=== PATIENT | male | born 1950 | race Caucasian/White ===

== ENCOUNTER 2023-02-28 06:09 | Observation (INO) ==
--- NOTE | 2023-02-09 14:58 | PAT Medication Instructions ---
Medication Instructions Date of Service February 09, 2023 Home Medications Medication Instructions Recorded amlodipine 5 mg-benazepril 10 mg 1 cap PO HS #90 caps 02/02/23 capsule rosuvastatin 5 mg tablet 5 mg PO HS #90 tabs 02/02/23 cholecalciferol (vitamin D3) 50 mcg (2,000 unit) capsule 50 mcg PO HS amlodipine 5 mg-benazepril 10 mg capsule 1 cap PO HS rosuvastatin 5 mg tablet 5 mg PO HS Take evening before surgery cholecalciferol (vitamin D3) 50 mcg (2,000 unit) capsule 50 mcg PO HS amlodipine 5 mg-benazepril 10 mg capsule 1 cap PO HS rosuvastatin 5 mg tablet 5 mg PO HS Other Notes If you have any questions please call us at [phone] or [phone] or [phone] or [phone]
--- NOTE | 2023-02-15 09:43 | Anesthesiology Consultation ---
Date of Service February 15, 2023 Assessment & Plan (1) Encounter for pre-operative examination: - COVID screening: Per assessment on 02/15: No known COVID-19 positive contacts or current COVID-19 related symptoms. Travel screen negative. Patient vaccinated. At surgeon discretion if preop Covid testing being done. - PCP visit (02/02/23): "I feel has an acceptable risk for the prostate cancer surgery which most likely would be done robotically." - Preop labs: Due to lab error, T&S not run with preop labs. Spoke with Jaki at blood bank- she just recommends patient have drawn DOS/does not feel patient needs to come in sooner preoperatively. T&S ordered for AM DOS. Chart Review Chart Review: Acceptable Risk for Surgery and Patient seen in Pre Admission Testing Teaching & Discussion Pre-Anesthesia Teaching/Discussion Notes: Instructed NPO after midnight before surgery,except medications with 15 cc of water. Medication instructions provided according to the PAT guidelines. History Surgery Operation Date: 02/28/23 08:20 Proposed Procedures p Laparoscopic Robotic Assisted Radical Retropubic Prostatectomy, Possible Open, Possible Pelvic Lymph Node Dissection - Houston Edwards MD Height/Weight Height: 5 ft 8 in Weight: 104.7 kg Allergies Allergy/AdvReac Type Severity Reaction Status Date / Time codine AdvReac Mild Vomiting Uncoded 02/09/23 14:19 Medications Home Medications Medication Instructions Recorded Confirmed Last Taken cholecalciferol (vitamin D3) 50 50 mcg PO HS 08/02/22 02/09/23 Unknown mcg (2,000 unit) capsule amlodipine 5 mg-benazepril 10 mg 1 cap PO HS #90 caps 02/02/23 02/09/23 Unknown capsule rosuvastatin 5 mg tablet 5 mg PO HS #90 tabs 02/02/23 02/09/23 Unknown Past Medical History Medical History BPH (benign prostatic hyperplasia) History of COVID-19 2021, mild cold symptoms > resolved Hyperlipemia Hypertension Prostate cancer Exercise / Class Metabolic Activity II 4-5 Yardwork/Stairs/Walk up hill (one FS (no CP, no SOB)) Past Family History Family History Mother Dementia Father Myocardial infarction Sister Myocardial infarction Past Surgical History Surgical History History of hernia surgery 2002 Hx of colonoscopy Past Anesthesia History No Hx of Anesthesia Complications and No Family Hx of Anesthesia Complications Mother- dementia, post-op worsening of dementia History of PONV No Hx of PONV and No Hx of Motion Sickness Social History Smoking Status: Former smoker tobacco type: cigarettes Do You Dip or Chew Tobacco: No Smoking End Date: Quit 35 years ago Hx Alcohol Use: Yes Alcohol type: wine alcohol intake frequency: 0-2 drinks per day (1 drink/day) Hx Substance Use: No substance use type: does not use Review of Systems Patient denies chest pain, shortness of breath, dyspnea on exertion, fever, chills, cough, wheezing, palpitations. Physical Exam Vital Signs VITALS BP 149/81 P 90 TEMP 98.3 SP02 95%RA RESP 16 PHYSICAL Full cervical extension range of motion. Full TMJ range of motion. TMD 3 finger breaths (thick neck, difficult to palpate) Mallampati Score 3 Dentition: intact, + crowns Lungs: clear throughout to auscultation Cardiac: regular rate and rhythm, no murmurs noted Spine: normal Carotid arteries: negative bruit Extremities: no LE edema Lab Results Anesthesia Preop Results Results Anesthesia Widget: WBC 10.08 K/ul (4.8-10.8) 02/15/23 Hgb 16.0 g/dl (14.0-18.0) 02/15/23 Hct 46.8 % (42.0-52.0) 02/15/23 Plt 263 K/uL (130-400) 02/15/23 Na 137 mmol/L (136-145) 02/15/23 K 4.1 mmol/L (3.5-5.1) 02/15/23 Cl 104 mmol/L (98-107) 02/15/23 CO2 25 mmol/L (21-32) 02/15/23 BUN 14 mg/dl (6-23) 02/15/23 Creat 0.74 mg/dl (0.6-1.4) 02/15/23 Glucose Level 98 mg/dl (70-99(Fasting)) 02/15/23 Testing Electrocardiogram Date: 02/15/23 NSR at 93bpm. LAD. Chest X-Ray Date: 02/15/23 FINDINGS: PA and lateral chest radiographs are obtained. No prior studies are available for comparison at the time of dictation. The cardiomediastinal silhouette is unremarkable. The lungs and pleural spaces are clear noting bibasilar scarring/atelectasis. There is no pneumothorax. The skeletal structures are osteopenic. The bony thorax appears intact. Degenerative change is noted in the spine. IMPRESSION: No active disease in the chest. Other Testing PET CT (01/18/23) Marked increased tracer activity within the 1.5 cm primary malignancy within the lateral aspect of the peripheral zone at the level of the mid gland prostate. No evidence of metastatic disease within the chest, abdomen or pelvis. Stable appearance of the previously described borderline enlarged iliac chain lymph nodes which demonstrate no significant tracer uptake. These are likely benign. No evidence of skeletal metastasis. COVID-19 Risk Screen Screening Information COVID-19 Screen Date: 02/15/23 Exposure 21 Days Family/Household +COVID Last 21 Days: No Exposure 10 Days Any COVID Exposure Last 10 Days: No Symptoms Last 10 Days Experienced COVID Sx Last 10 Days: No + COVID 0-90 Days COVID + in Last 0-90 Days: No
[~2023-02-28 06:09] MED LIST: HEPARIN SOD 5,000 UNIT/0.5 ML VIAL SQ SCH; LR 15ML/HR IV SCH
[2023-02-28] MEDS ORDERED: BUPIVACAINE 0.5 % 5 MG/1 ML MPF 30ML VIAL ONE (07:05)
[2023-02-28] MEDS ORDERED: LIDOCAINE 2% 2 ML VIAL/AMP(20MG/ML) INFIL ONE (07:11)
[2023-02-28] MEDS ORDERED: ONDANSETRON INJ 2 MG/ML 2 ML VIAL ONE (07:11)
[2023-02-28] MEDS ORDERED: DEXAMETHASONE SOD INJ 4 MG/ML VIAL ONE (07:11)
[2023-02-28] MEDS ORDERED: KETAMINE 50 MG/5 ML SYRINGE ONE (07:11)
[2023-02-28] MEDS ORDERED: MIDAZOLAM HCL 1 MG/ML 2ML VIAL ONE (07:11)
[2023-02-28] MEDS ORDERED: ROCURONIUM BROMIDE 10 MG/ML 5 ML VIAL IV ONE (07:11)
[2023-02-28] MEDS ORDERED: fentaNYL citrate PF 100 MCG/2 ML VIAL ONE ×2 (07:11→09:10)
--- NOTE | 2023-02-28 07:27 | History & Physical Bridge Note ---
Date of Service February 28, 2023 History & Physical Bridge Note I have examined the patient, reviewed the History & Physical and in the interval since the performance of the History & Physical I have noted the following changes of clinical significance: no changes noted
[2023-02-28] MEDS ORDERED: ceFAZolin 2,000 MG/15 ML IV PUSH IV ONE (07:31)
[2023-02-28] MEDS ORDERED: BELLADONNA/OPIUM SUPP 60 MG SUPP PR ONE (07:49)
[2023-02-28] MEDS ORDERED: ONDANSETRON INJ 2 MG/ML 2 ML VIAL IV PRN ×2 (07:58→12:48)
[2023-02-28] MEDS ORDERED: ATROPINE SULFATE 0.1 MG/ML 10ML SYR IV PRN (07:58)
[2023-02-28] MEDS ORDERED: ePHEDrine sulfate 50 MG/ML AMP IV PRN (07:58)
[2023-02-28] MEDS ORDERED: HYDROmorphone INJ 1 MG/ML SYRINGE IV PRN (07:58)
[2023-02-28] MEDS ORDERED: FLOSEAL HEMOSTATIC MATRIX 10ML TOP ONE (08:47)
[2023-02-28] MEDS ORDERED: SURGICEL ABSORB HEMOSTAT 2IN X 14IN TOP ONE (08:49)
[2023-02-28] MEDS ORDERED: SUGAMMADEX SODIUM 200 MG/2 ML VIAL IV ONE (10:22)
--- NOTE | 2023-02-28 11:03 | Operative Report ---
[facility] Post Operative Report Pre & Post Diagnosis Operation Date: 02/28/23 07:30 Pre-Op Diagnosis: Prostate Cancer Post-Op Diagnosis: Prostate Cancer I identified the patient and participated in the time-out.: Yes Procedure Operation Date: 02/28/23 07:30 Actual Procedures p Laparoscopic Robotic Assisted Radical Retropubic Prostatectomy, Bilateral Pelvic Lymph Node Dissection(Not Applicable) - Houston Edwards MD Surgeon Houston Edwards MD City Editor Ileana Hunt Estimated Blood Loss 150 Findings Consistent with Post-Op Diagnosis Specimens 1. Periprostatic fat 2. Prostate and seminal vesicles 3. Left pelvic lymph nodes 4. Right pelvic lymph nodes Description of Procedure The patient was identified in the preoperative holding area, appropriate informed consents were reviewed and completed, and he was transported to the operating suite. Subcutaneous heparin was administered in the pre-operative holding area. Upon arrival in the operating suite, he received appropriate antibiotics and general anesthesia. He was positioned in dorsal lithotomy, a B&O suppository was inserted after digital rectal exam, and he was prepped and draped in standard fashion. A Pickens catheter was inserted in the sterile field. A Veress needle was passed per umbilicus with uniform insufflation of the abdomen to 15mmHg. He was placed in steep Trendelenburg position. A periumbilical incision was then made to accommodate a 12mm Visiport with 10mm 0degree laparoscope. Inspection of the abdomen was carried out, and there was no evidence of traumatic entry or injury secondary to the Veress needle. After confirming a clear anterior abdominal wall, ports were subsequently placed in standard robotic prostatectomy fashion without incident. To begin the robotic portion of the case, the left lateral aspect of the sigmoid was mobilized off of the left pelvic side wall to allow the pouch of Cole to be appropriately visualized. The medial umbilical ligaments were then controlled with bipolar electrocautery just inferior to the umbilicus. Following cauterization, they were divided utilizing monopolar cautery. A peritoneal incision was carried from this location to the medial aspect of the internal inguinal rings bilaterally with care to avoid opening through the ring. This incision was concluded when the vas deferens was reached. Dissection of the bladder and prostate off of the posterior aspect of the pubic arch was completed allowing full visualization of the prostate. The fat overlying the prostate was removed en bloc and passed off the table as a specimen labeled "periprostatic fat". The endopelvic fascia was cleared during this portion of the procedure, and subsequently opened - first on the right and then the left. The incision through the endopelvic fascia began near the prostate-bladder junction and was carried to the apex with extreme care to preserve all lateral levator musculature as well as the periurethral musculature and sphincter complex. I additionally preserved the puboprostatic ligaments. I then controlled the DVC with a 3-0 V-lock suture in overlapping/figure of 8 fashion. The lymph node dissection was then conducted. External iliac vessels were identified on the pelvic side wall. The packet of fat and lymphatic tissue that resides just under the iliac vein was elevated and off of the vein with a split and roll technique. The packet was dissected laterally to the circumflex vein and distally to the obturator nerve which was preserved. The proximal aspect of the packet was carried towards the bifurcation of the iliac vessels. A combination of monopolar and bipolar cautery were used to assist with control. After completing the dissection on both sides, the packets were collected and passed off of the table as specimens labeled "pelvic lymph nodes". My attention then returned to the prostate, with identification of the bladder neck aided by gentle traction on the Pickens catheter and lateral to medial pressure at the presumed level of the bladder neck with the robotic instruments. An anterior cystotomy was made, the Pickens balloon deflated and the catheter guided through the incision to allow anterior retraction. I attempted to preserve maximal bladder neck musculature as I circumferentially dissected around the bladder neck. After incision through the posterior aspect of the mucosa, the dissection was carried through detrusor muscle until the bilateral ampullae of the vasa were identified. These reach elevated and dissected for approximately 3 to 4 cm before transecting them. I then dissected the lateral seminal vesicles entirely. Utilizing the seminal vesicles we were able to retract the prostate anteriorly and then dissected plane posterior to the prostate splitting the posterior fascia. An incision in the lateral prostatic fascia was then made bilaterally to facilitate control of the vascular pedicles and preservation of the nerve bundles. Vasculature running along the posterior/lateral aspect of the prostate was preserved as well as the tissue containing the nerves. The pedicles were then controlled with a series of Weck clips. The apical attachments of the prostate were remaining at that stage. The DVC was divided after control with bipolar cautery over the prostate. Continuous inspection from anterior and lateral views allowed me to closely follow the apical contour of the prostate and maximally preserve urethral length and tissue. The prostate was entirely freed at that point, and collected in an EndoCatch bag before being moved out of the field of vision. Hemostasis was confirmed and anastomosis of the bladder and urethra was completed utilizing a double armed V- Lock stitch. A new Pickens catheter was inserted and the anastomosis tested with irrigation. There was no evidence of leak. A maria style stitch was placed bilaterally to functionally marsupialize the area of the lymph node dissection. The robot was undocked, the specimen extracted through expansion of the mj- umbilical camera port. The fascia was closed with a series of 0-PDS figure of 8 stitches. The right phlebotomist lab assistant port was closed in two layers - with a figure of 8 0-Vicryl to reapproximate the fascia followed by 4-0 Monocryl to close the skin. Monocryl was used to close all other skin incisions. All wounds were dressed with Dermabond. The case was concluded and the patient taken to the PACU in stable condition. Ileana Hunt assisted from incision to closure. I attest to the content of the Intraoperative Record and any orders documented therein. Any exceptions are noted below.
[2023-02-28 11:40] LABS: Basophils # (auto) 0.04 K/uL (0-0.2); Basophils % (auto) 0.3 %; Eosinophils # (auto) 0.03 K/uL (0-0.50); Eosinophils % (auto) 0.2 %; Hematocrit (blood only) 45.9 % (42.0-52.0); Hemoglobin 15.4 g/dl (14.0-18.0); Immature Granulocytes # (auto) 0.07 K/uL (0.01-0.20); Immature Granulocytes % (auto) 0.5 %; Lymphocytes # (auto) 1.32 K/uL (1.2-3.4); Lymphocytes % (auto) 9.8 %; Mean Corpuscular Hemoglobin 30.4 pg (25.0-34.0); Mean Corpuscular Hgb Conc 33.6 g/dL (32.0-36.0); Mean Corpuscular Volume 90.5 fL (80.0-100.0); Mean Platelet Volume 9.8 fL (9.4-12.4); Monocytes # (auto) 0.18 K/uL (0.11-0.59); Monocytes % (auto) 1.3 %; Neutrophils # (auto) 11.84 K/uL (1.40-6.50); Neutrophils % (auto) 87.9 %; Platelet Count 236 K/uL (130-400); RDW Coefficient of Variation 13.2 % (11.5-14.5); Red Blood Count 5.07 M/uL (4.70-6.10); White Blood Count 13.48 K/ul (4.8-10.8)
[2023-02-28 12:01] LABS: BUN Creatinine Ratio 16.5 (10-20); Blood Urea Nitrogen 16 mg/dl (6-23); Calcium 8.6 mg/dl (8.6-10.3); Carbon Dioxide 24 mmol/L (21-32); Chloride 106 mmol/L (98-107); Creatinine Clr Calc Pharmacy 78.6 ml/min; Est GFR (African American) 89.4 ml/min; Est GFR (Non-African American) 77.1 ml/min; Glucose 150 mg/dl (70-99(Fasting))
--- NOTE | 2023-02-28 12:09 | Anesthesiology Progress Note ---
Date of Service February 28, 2023 Anesthesia Post Procedure Vital Signs Vital Signs: Temp Pulse Pulse Resp BP Pulse Ox O2 Del Method 02/28/23 12:00 54 L 22 111/71 93 Nasal Cannula 02/28/23 11:50 67 28 H 122/70 90 Room Air 02/28/23 11:40 79 21 122/70 95 Oxymask 02/28/23 11:30 91 H 19 129/74 98 Oxymask 02/28/23 11:20 97 H 24 159/83 H 97 Oxymask 02/28/23 11:13 36.2 C L 99 H 19 140/86 99 Oxymask 02/28/23 06:36 36.8 C 95 H 16 162/81 H 96 Room Air O2 Flow Rate 02/28/23 12:00 2 02/28/23 11:50 02/28/23 11:40 5 02/28/23 11:30 5 02/28/23 11:20 5 02/28/23 11:13 5 02/28/23 06:36 Pain Intensity Abdomen: Pain Intensity: 3 Transfer of Care Handoff Completed per policy Notes Mental Status: alert / awake / arousable and participated in evaluation Nausea / Vomiting: adequately controlled Pain: adequately controlled Airway Patency, RR, SpO2: stable & adequate BP & HR: stable & adequate Hydration State: stable & adequate Anesthetic Complications: no major complications apparent and Pt Satisfied with anesthetic care
[2023-02-28] MEDS ORDERED: MoRPHine SULFATE 2 MG/ML CARP IV PRN (12:48)
[2023-02-28] MEDS ORDERED: oxyCODONE HCL IR 5 MG TAB (IMMEDIATE RELEASE) PO PRN ×2 (12:48)
[2023-02-28] MEDS ORDERED: MoRPHine SULFATE 4 MG/ML 1 ML CARP\\VIAL IV PRN (12:48)
[2023-02-28 12:56] LABS: Potassium 4.4 mmol/L (3.5-5.1)
[2023-02-28] MEDS: LACTATED RINGER'S 1,000 ML IV SCH ×2 (13:11→21:18)
[2023-02-28] MEDS: ACETAMINOPHEN 325 MG TAB PO SCH ×2 (13:13→19:25)
[2023-02-28] MEDS: DOCUSATE SODIUM 100 MG CAP PO SCH (19:31)
[2023-02-28] MEDS: HEPARIN SOD 5,000 UNIT/0.5 ML VIAL SQ SCH (19:32)
[2023-02-28] MEDS: ceFAZolin 2000MG 2,000 MG/15 ML SYR IV SCH (19:32)
[2023-02-28] MEDS ORDERED: ROSUVASTATIN CALCIUM 5 MG TAB PO SCH (21:00)
[2023-02-28] MEDS ORDERED: ENALAPRIL MALEATE 10 MG TAB PO SCH (21:00)
[2023-02-28] MEDS ORDERED: CHOLECALCIFEROL 1,000 UNITS 25 MCG TAB PO SCH (21:00)
[2023-02-28] MEDS ORDERED: amLODIPine BESYLATE 5 MG TAB PO SCH (21:00)
[2023-03-01] MEDS: ACETAMINOPHEN 325 MG TAB PO SCH ×3 (01:04→13:37)
[2023-03-01] MEDS: ceFAZolin 2000MG 2,000 MG/15 ML SYR IV SCH (04:26)
[2023-03-01] MEDS: LACTATED RINGER'S 1,000 ML IV SCH (07:00)
[2023-03-01 07:15] LABS: Basophils # (auto) 0.03 K/uL (0-0.2); Basophils % (auto) 0.1 %; Hematocrit (blood only) 43.2 % (42.0-52.0); Hemoglobin 15.2 g/dl (14.0-18.0); Immature Granulocytes # (auto) 0.13 K/uL (0.01-0.20); Immature Granulocytes % (auto) 0.6 %; Lymphocytes # (auto) 1.51 K/uL (1.2-3.4); Lymphocytes % (auto) 7.5 %; Mean Corpuscular Hgb Conc 35.2 g/dL (32.0-36.0); Mean Corpuscular Volume 88.2 fL (80.0-100.0); Monocytes # (auto) 1.96 K/uL (0.11-0.59); Monocytes % (auto) 9.7 %; Neutrophils # (auto) 16.63 K/uL (1.40-6.50); Neutrophils % (auto) 82.1 %; Platelet Count 251 K/uL (130-400); RDW Coefficient of Variation 13.4 % (11.5-14.5); RDW Standard Deviation 43.6 fL (36.4-46.3); White Blood Count 20.26 K/ul (4.8-10.8)
[2023-03-01 07:17] LABS: BUN Creatinine Ratio 18.7 (10-20); Calcium 8.4 mg/dl (8.6-10.3); Creatinine Clr Calc Pharmacy 83.7 ml/min; Est GFR (African American) 96.6 ml/min; Est GFR (Non-African American) 83.3 ml/min
--- NOTE | 2023-03-01 07:59 | Urology Progress Note ---
Date of Service March 01, 2023 Assessment & Plan (1) Prostate cancer: Plan: Progressing appropriately on postoperative day #1 Continue ambulation Advance diet Potential discharge home later this morning presuming he continues to progress as he has already Admission and Anticipated Discharge Date Admission Date: February 28, 2023 Subjective Did great overnight No pain Ambulatory Passing some flatus Labs are all stable Physical Exam Physical Exam: Incisions appropriate, abdomen slightly distended but not tender Constitutional: well developed and well nourished Respiratory: no respiratory distress Cardiovascular: Extremities: no pedal edema Gastrointestinal (Abdomen): Inspection/Auscultation: abdomen normal to inspection Results & Data Vital Signs (Past 12 Hours) Vital Signs Temp Pulse Resp BP BP Pulse Ox O2 Del Method 03/01/23 07:03 37 C 101 H 18 145/79 H 93 Room Air 03/01/23 02:14 36.8 C 90 18 123/73 93 Room Air 02/28/23 23:18 36.9 C 91 H 18 122/66 93 Room Air PG Care Time/CCT Total # of Minutes Spent Total Time Spent with Patient: Total time spent is greater than 50% in coordination of care (as documented) at patient's floor/unit and/or counseling patient: Coding Level of Care Code None Diagnoses Prostate cancer C61
[2023-03-01] MEDS: HEPARIN SOD 5,000 UNIT/0.5 ML VIAL SQ SCH (08:14)
[2023-03-01] MEDS: DOCUSATE SODIUM 100 MG CAP PO SCH (08:17)
--- NOTE | 2023-03-01 14:21 | Discharge Summary ---
Date of Service March 01, 2023 Admission HPI Per Admitting Provider Patient with prostate cancer here for robotic prostatectomy. Admission Exam Per Admitting Provider Constitutional well developed and well nourished Neck neck nontender Respiratory normal respiratory effort; no respiratory distress and does not use accessory muscles Cardiovascular Rate/Rhythm: regular rate Vessels: radial pulses present Extremities: no edema Gastrointestinal (Abdomen) Inspection/Auscultation: abdomen normal to inspection Percussion/Palpation: abdomen soft; abdomen nontender and no guarding Musculoskeletal Head/Neck/Chest: normocephalic and head atraumatic Extremities: extremities normal to inspection Skin no rashes and no lesions Trauma: no evidence of skin trauma Neurologic awake; not obtunded Speech / Cognition: normal speech Motor/Sensory: no tremor Psychiatric Orientation: alert and oriented x 3 Genitourinary no CVA tenderness Lymphatic no lymphadenopathy Principal Diagnosis Prostate cancer Discharge Exam Constitutional well developed and well nourished; no acute distress Respiratory normal respiratory effort; no respiratory distress and no labored breathing Gastrointestinal (Abdomen) Inspection/Auscultation: abdomen normal to inspection; abdomen not distended Musculoskeletal Head/Neck/Chest: normocephalic and head atraumatic Skin Incisions appropriate Psychiatric Orientation: alert and oriented x 3 Genitourinary Pickens patent and draining yellow urine with intermittent bloody sediment in tubing Discharge Data Allergies Allergy/AdvReac Type Severity Reaction Status Date / Time codine AdvReac Mild Vomiting Uncoded 02/28/23 06:02 Procedures Performed Operation Date: 02/28/23 07:30 Actual Procedures p Laparoscopic Robotic Assisted Radical Retropubic Prostatectomy, Bilateral Pelvic Lymph Node Dissection(Not Applicable) - Houston Edwards MD Hospital Course (1) Prostate cancer: Progressing appropriately on postoperative day #1 Continue ambulation Advance diet Potential discharge home later this morning presuming he continues to progress as he has already Patient reassessed this afternoonhe is progressing as expected. He is ready for discharge to home. Expected clinical course reviewed, all questions answered. Outpatient follow-ups in place. Orders placed for discharge to home with Pickens catheter. Total Time Total Time Spent Total Time Spent (In Minutes): 29 Discharge Plan Discharge Items Patient Disposition: Home - Self-Care Reason For Visit: Prostate Cancer Discharge Diagnosis: Prostate Cancer Activity: Per Instructions section Lifting: No more than 10 pounds Bathing Comment: Okay to shower after discharge, no tub bath or soaking Sexual Activity: Wait until after follow-up appointment Exercise/Sports: Wait until after follow-up appointment Driving/Machine Use: No driving while taking prescription pain medication Non-emergency contact: Surgeon and Urologist Call non-emergency contact if: your pain is not controlled, you have a fever, your temperature is above 101.5, your wound has increased redness, your wound has increased drainage and your wound pain has increased Follow-up/Referrals: Houston Edwards MD [Physician] - 03/15/23 9:15 am Chriss De León MD [Primary Care Provider] - [facility],Nurse [FAKE FOR SCHEDULES] - 03/06/23 9:00 am Diet: Regular Ambulatory Orders: Type and Screen (Routine) Timeframe: 1 Day Location: Determined by Patient Ordered By: Cherri Ornelas Attending Provider Instructions: Please take all medications as prescribed and keep all follow-ups as scheduled. Please call our office at [phone] with any questions, concerns or need to reschedule appointments for any reason. We are happy to assist you. We have sent an antibiotic to your pharmacy of choice. Please begin antibiotic as prescribed the day BEFORE your scheduled voiding trial at [facility]. Please continue antibiotic every 12 hours through the day AFTER your voiding trial. Activity: We recommend having someone with you for the first few days after surgery to help care for you. For the first 2 weeks after surgery, we would like you to get up and walk around your house. However, we recommend limit physical activity that would increase your heart rate. This will allow your body to rest and heal. Take naps if you feel tired. Don't lift anything heavier than 10 pounds, mow the law or ride a bicycle until your follow-up appointment. Please avoid long car rides. Home Care: Unless directed otherwise, drink 6 to 8 glasses of water a day (enough to keep your urine light colored). This will also help keep a healthy flow of urine. We recommend using a stool softener for the first two weeks to avoid constipation. Pickens Catheter or Suprapubic Catheter care: Keep the catheter well secured with either a leg back or leg strap with large bag. Empty your bag when it's about half full. You may notice some blood in the bag. This is normal after surgery and while the catheter is in place. Use mild soap (such as Dove or Dial) and water to wash the catheter and the head of your penis daily, or more frequently if needed. Return to your normal diet, we encourage good protein intake to promote healing. You may shower as normal. Please avoid tub baths or soaking until catheter removed and incisions well healed. Wearing sweat pants while you have the catheter is recommended, they will be more comfortable. Follow-up Your follow up appointments for having your catheter removed, and follow up with your physician should already be scheduled. If you have any questions regarding this, please contact our office. Your final pathology report will be discussed at your physician follow-up appointment. Call [facility] at [phone] right away if you have any of the following: Chest pain or trouble breathing (call 485 or go to the hospital) Fever of 101F or higher, uncontrolled vomiting Heavy bleeding, clots, or bright red blood from the catheter Catheter that falls out or stops draining Foul-smelling discharge from your catheter Redness, swelling, warmth, or increased pain at your incision site Drainage, pus, or bleeding from your incision Pending Studies at Discharge: Yes (pathology) Stand-Alone Forms: [facility] [employer], Smoking Cessation Medications and DC Order Prescriptions: New ciprofloxacin HCl 500 mg tablet 500 mg PO BID Qty: 6 0RF Rx Instructions: start 1 day prior to catheter removal oxycodone-acetaminophen [Percocet] 5-325 mg tablet 1 tab PO TID PRN (Reason: pain) Qty: 7 0RF docusate sodium [Colace] 100 mg capsule 100 mg PO BID Qty: 60 0RF Rx Instructions: Take twice daily for 2 weeks, then as needed for constipation. Continued cholecalciferol (vitamin D3) 50 mcg (2,000 unit) capsule 50 mcg PO HS amlodipine-benazepril 5-10 mg capsule 1 cap PO HS Qty: 90 3RF rosuvastatin 5 mg tablet 5 mg PO HS Qty: 90 3RF Discharge Orders: Discharge Order (Routine); Ordered 03/01/23 Ordered By: Ileana Alexandre/Other Patient Handouts: Prostate Cancer Radical ... Admission Data Admit Date/Time: 02/28/23 11:05 Attending Provider: Houston Edwards Admit Provider: Houston Edwards Primary Care Provider: Chriss De León Other Interventions: Discharge Summary Assessment (RN) Last Done: 03/01/23 13:04 Coding Level of Care Code 19236 IN/OBS DISCH 30 MIN/LESS Diagnoses Prostate cancer C61
== END 2023-03-01 13:40 | disposition home or self-care (01) ==
LOC: ASU 06:09 → 3W 11:05 → INTOOBSV 11:05